=== PATIENT | male | born 1955 | race Caucasian/White ===

== ENCOUNTER → 2020-12-15 | Outpatient (CLI) | payer OTHER | LOC: NM 11-10 12:00 → ECHO 11-10 12:00 → NM 11-10 13:00 → HEART 5 07:20 | DX: I25.10 Atherosclerotic heart disease of native coronary artery without angina pectoris (principal); I08.8 Other rheumatic multiple valve diseases; I11.9 Hypertensive heart disease without heart failure; R94.39 Abnormal result of other cardiovascular function study; E78.5 Hyperlipidemia, unspecified | CPT/HCPCS: 78452; 93306; A9502; J2785 ==

== ENCOUNTER → 2021-01-13 | Outpatient (CLI) | payer OTHER ==
[2021-01-13 12:42] LABS: HEMOGLOBIN 14.2 gm/dl (14.0-17.5); RED BLOOD COUNT 4.56 M/UL (4.20-5.50); WHITE BLOOD COUNT 5.9 K/UL (4.5-11.0)
[2021-01-13 13:09] LABS: BUN/CREATININE RATIO 19 (0-10)
== END ==
LOC: LAB 12:07
PROVIDERS: Internal Medicine Interventional Cardiology
DX: I25.10 Atherosclerotic heart disease of native coronary artery without angina pectoris (principal); I10 Essential (primary) hypertension; I21.9 Acute myocardial infarction, unspecified; I25.5 Ischemic cardiomyopathy
CPT/HCPCS: 36415; 80048; 85025; 85610; 85730

== ENCOUNTER 2021-02-13 07:02 | Outpatient (CLI) | payer OTHER ==
[~2021-02-13] VITALS: Ht 177.8 cm; Wt 98.2 kg
[2021-02-13 07:46] LABS: HEMOGLOBIN 13.3 gm/dl (14.0-17.5); RED BLOOD COUNT 4.42 M/UL (4.20-5.50); WHITE BLOOD COUNT 5.5 K/UL (4.5-11.0)
[2021-02-13] MEDS ORDERED: FAMOTIDINE20 MG PO (08:09)
[2021-02-13] MEDS ORDERED: MELOXICAM15 MG PO (08:09)
[2021-02-13] MEDS ORDERED: ISOSORBIDE MONO30 MG PO (08:10)
[2021-02-13] MEDS ORDERED: CLOPIDOGREL75 MG PO (08:10)
[2021-02-13] MEDS ORDERED: ROBAXIN 750 MG750 MG PO (08:10)
[2021-02-13] MEDS ORDERED: ABILIFY 5 MG TAB5 MG PO (08:11)
[2021-02-13] MEDS ORDERED: LISINOPRIL2.5 MG PO (08:11)
[2021-02-13] MEDS ORDERED: LOPRESSOR 25 MG25 MG PO (08:11)
[2021-02-13] MEDS ORDERED: ATORVASTATIN CA20 MG PO (08:12)
[2021-02-13] MEDS ORDERED: ERYTHROMYCIN O3.5 GM OU (08:13)
[2021-02-13] MEDS ORDERED: PROZAC40 MG PO (08:13)
[2021-02-13 08:23] LABS: BUN/CREATININE RATIO 19 (0-10)
[2021-02-13] MEDS ORDERED: ASPIRIN81 MG PO (14:23)
[2021-02-13] MEDS ORDERED: VITAMIN B COMP1 EAC1 PO (14:23)
[2021-02-13] MEDS ORDERED: ACETAMINOPHEN-1 EAC1 PO (14:26)
[2021-02-13 18:05] LABS: HEMOGLOBIN 12.5 gm/dl (14.0-17.5); RED BLOOD COUNT 3.98 M/UL (4.20-5.50); WHITE BLOOD COUNT 5.1 K/UL (4.5-11.0)
[2021-02-13 18:26] LABS: BUN/CREATININE RATIO 16 (0-10)
[2021-02-14 03:29] LABS: HEMOGLOBIN 12.2 gm/dl (14.0-17.5); RED BLOOD COUNT 3.89 M/UL (4.20-5.50); WHITE BLOOD COUNT 5.1 K/UL (4.5-11.0)
[2021-02-14 03:47] LABS: BUN/CREATININE RATIO 16 (0-10)
[2021-02-14] MEDS ORDERED: ATORVASTATIN CA40 MG PO (10:56)
== END 2021-02-14 12:49 | disposition home or self-care (01) ==
LOC: CATH 07:02 → PROG CARE 14:21 → CATH 02-14 12:49
PROVIDERS: Internal Medicine Interventional Cardiology
DX: I25.119 Atherosclerotic heart disease of native coronary artery with unspecified angina pectoris (principal); I10 Essential (primary) hypertension; E11.9 Type 2 diabetes mellitus without complications; Z95.1 Presence of aortocoronary bypass graft; Z88.1 Allergy status to other antibiotic agents; E78.5 Hyperlipidemia, unspecified; Z95.5 Presence of coronary angioplasty implant and graft; Z20.822 Contact with and (suspected) exposure to COVID-19
CPT/HCPCS: 36415; 80048; 85025; 85027; 85347; 85610; 85730; 93005; 99152; 99153; C1725; C1769; C1874; C1887; C9600; J0461; J1644; J2250; J3010; J3246; J7030; J7040; Q9967

== ENCOUNTER → 2021-11-16 | Outpatient (CLI) | payer OTHER ==
[~2021-11-16] MED LIST: ABILIFY 5 MG TAB5 MG PO; ACETAMINOPHEN-1 EAC1 PO; ASPIRIN81 MG PO; ATORVASTATIN CA20 MG PO; ATORVASTATIN CA40 MG PO; CLOPIDOGREL75 MG PO; ERYTHROMYCIN O3.5 GM OU; FAMOTIDINE20 MG PO; ISOSORBIDE MONO30 MG PO; LISINOPRIL2.5 MG PO; LOPRESSOR 25 MG25 MG PO; MELOXICAM15 MG PO; PROZAC40 MG PO; ROBAXIN 750 MG750 MG PO; VITAMIN B COMP1 EAC1 PO
== END ==
LOC: HEART 5 12:42
DX: R94.30 Abnormal result of cardiovascular function study, unspecified (principal); I25.5 Ischemic cardiomyopathy
CPT/HCPCS: 93306